=== PATIENT | male | born 1990 | race African-American/Black ===

== ENCOUNTER 2022-07-16 18:27 | Emergency (ER) | payer SELFPAY ==
[2022-07-16] MEDS ORDERED: traMADol HCl 50 MG TAB ONE (19:09)
== END 2022-07-16 19:15 | disposition home or self-care (01) ==
LOC: ERS 18:27
DX: K04.7 Periapical abscess without sinus (principal); K02.9 Dental caries, unspecified
CPT/HCPCS: 99283